=== PATIENT | male | born 2000 | race Caucasian/White ===

== ENCOUNTER 2018-02-15 22:27 | Emergency (ER) | payer BC ==
[~2018-02-15] VITALS: Ht 177.8 cm; Wt 89.0 kg
[2018-02-15 22:38] VITALS: TEMP 37.1; Ht 177.8 cm; Wt 89.0 kg
[2018-02-15] MEDS ORDERED: IBUPROFEN 800 MG TAB PO STA (23:05)
--- NOTE | 2018-02-15 23:20 | EMERGENCY ROOM VISIT NOTE ---
History First contact with patient: 22:51 Chief Complaint: ANKLE PAIN Stated Complaint: HURT LEFT ANKLE, VERY SWOLLEN History of Present Illness The patient is a 17 year old male who presents to the Emergency Room via private vehicle with complaints of "heart left ankle, very swollen". The patient states that earlier today around 4 PM he was playing basketball, when he came down from a jump and inverted left ankle. He notes pain and swelling overlying the left lateral malleolus and rates his pain as a 6/10. He has tried ice but no medications. He notes a popping sensation was felt. Review of Systems A complete 6-point Review of Systems was discussed with the patient, with pertinent positives and negatives listed in the History of Present Illness. All remaining Review of Systems questions can be considered negative unless otherwise specified. Past Medical/Surgical History No pertinent Family History Noncontributory Social History Smoking Status: Never Smoker Patient is a [place] [employer] student. Physical Exam Vital Signs Date Time Temp Pulse Resp B/P (MAP) Pulse Ox O2 Delivery O2 Flow Rate FiO2 02/15/18 22:38 37.1 85 18 154/90 97 Room Air Physical Exam VITAL SIGNS - Vital signs and nursing notes were reviewed. Stable. GENERAL -17-year-old male appearing his stated age who is in no acute distress. Communicates well with provider and answers questions appropriately. SKIN - Without rashes. No meningeal or petechial rash. EXTREMITIES - No clubbing or peripheral cyanosis. No pretibial edema present. Tenderness to palpation overlying the left lateral malleolus. Decreased range of motion of the left ankle joint secondary to tenderness. The joint above and below left ankle joint is unremarkable. No tenderness. Skin is intact. No bruising. Minimal edema overlying the left lateral malleolus region. Medical Decision & Procedures ER Provider Diagnostic Interpretation: Left ankle 3 views were obtained for interpretation and read by myself. This reveals no fracture, dislocation or foreign body. Minimal soft tissue edema noted. Medications Administered Medications (Trade) Dose Ordered Sig/Neida Route Start Time Stop Time Status Last Admin Dose Admin Ibuprofen (Motrin Tab) 800 mg NOW STAT PO 02/15/18 23:05 02/15/18 23:06 DC 02/15/18 23:11 800 MG Medical Decision Patient was seen and evaluated as above in room a 12. Review was performed of nursing notes and vital signs. After obtaining a thorough history and physical examination the above work up was performed. X-ray was obtained of the left ankle. Read by myself to reveal no acute fracture or dislocation. I suspect left ankle sprain. He was placed in a gel ankle splint and made nonweightbearing with crutches. He is to follow with orthopedics in 7-10 days or return with worsening. While here he was given ice, and ibuprofen. The patient was educated upon management, had questions answered prior to discharge , and was discharged home in good condition. In the evaluation and treatment of this patient, the following differential diagnoses were considered: Ankle Fracture, Ankle Sprain, Distal Fibula Fracture , Distal Tibia Fracture, Foot Fracture, [place]uve Fracture. Impression Primary Impression: Left ankle pain Departure Information Dispostion Home / Self-Care Condition GOOD Referrals [facility] (PCP) Esteban Casey M.D. Patient Instructions My [facility] Additional Instructions You have been treated in the Emergency Department for a L Ankle pain. You have received pain medicine in the emergency department which impairs your ability to operate a vehicle. It is illegal for you to drive after receiving these medicines. For pain control, you can use the following [id number] medicines: - Regular strength (325mg/tab) Tylenol (acetaminophen) 2 tabs every 4-6 hours as needed. Do not exceed 12 tablets in a 24 hour period. Avoid taking more than 3 grams (3000 mg) of Tylenol per day. This includes any other sources of acetaminophen you may take on a regular basis. - Regular strength (200 mg/tab) Advil (ibuprofen) 1-2 tabs every 4-6 hours as needed. Do not exceed a dose of 3200 mg per day. If this is a recent injury (<24 hrs), ice can be applied to the area of pain for the first 3 days to help decrease pain and inflammation. You have been provided the number for an Orthopaedic Surgeon. You should call this number as soon as possible to establish a follow-up visit from today's Emergency Department visit. Keep the ankle brace/splint in place until cleared by Orthopedics. Use the crutches you have been provided to keep ALL weight off of the ankle until weight bearing is tolerable. Return to the Emergency Department if your current symptoms worsen despite treatment course outlined above, or if you develop any of the following symptoms : intractable pain despite aforementioned treatment course or new onset of numbness or tingling of the foot.
[2018-02-15 23:37] VITALS: BP 126/70; PULSE 78; O2SAT 98
--- NOTE | 2018-02-16 07:25 | DIAGNOSTIC IMAGING REPORT ---
LEFT ANKLE 3 VIEWS HISTORY: L ankle pain s/p injury COMPARISON: None. FINDINGS: There is no fracture or dislocation. Lateral soft tissue swelling. No radiopaque foreign bodies. IMPRESSION: No fractures. Electronically signed by: Nathen Blake M.D. 02/16/2018 7:24 AM Dictated Date/Time: 02/16/2018 7:21 AM
== END 2018-02-15 23:38 | disposition home or self-care (01) ==
LOC: C.EDB 22:28 → C.EDA 23:38
DX: S99.912A Unspecified injury of left ankle, initial encounter (principal); X50.0XXA Overexertion from strenuous movement or load, initial encounter; Y93.67 Activity, basketball